=== PATIENT | male | born 1975 | race Caucasian/White ===

== ENCOUNTER → 2024-03-10 07:30 | Outpatient (CLI) | payer OTHER, SELFPAY ==
--- NOTE | 2024-03-10 07:32 | DI.US.S_ITS ---
PROCEDURE: US SCROTUM INDICATIONS: Left lower quadrant pain TECHNIQUE: Real-time scanning was performed of the scrotum and testicles, with image documentation. Color and pulse Doppler interrogation was performed of both testicles. COMPARISON: None. FINDINGS: Right: Testicle is normal in size at 5.2 x 2.4 x 3.0 cm, and homogenous in echotexture. Epididymis is normal in overall size and morphology. No hydrocele or varicoceles. Overlying scrotal skin is normal in thickness. Left: Testicle is normal in size at 4.8 x 2.5 x 3.6 cm, and homogeneous in echotexture. Epididymis is normal in overall size and morphology. Moderate hydrocele . Overlying scrotal skin is normal in thickness. Doppler: Color and pulse Doppler demonstrate normal and symmetric arterial flow in both testicles. IMPRESSION: Moderate left hydrocele, nonspecific. No evidence of torsion. Approved by: Wong Cespedes M.D. on 03/10/2024 at 16:21
--- NOTE | 2024-03-10 07:32 | DI.US.S_ITS ---
PROCEDURE: US ABDOMEN LIMITED INDICATIONS: Left lower quadrant pain TECHNIQUE: Real-time scanning was performed of the abdominal, with image documentation. COMPARISON: None. FINDINGS: In the area of clinical concern there is possible fat containing hernia in the left lower abdomen just lateral to the rectus muscle. There is defect seen with Valsalva measuring 2.6 x 1.2 x 2.1 cm. IMPRESSION: Probable fat containing hernia in the left lower quadrant lateral to the lower rectus muscle. Approved by: Deysi Dahl M.D.,Ph.D. on 03/11/2024 at 1:24
== END ==
PROVIDERS: Referring Provider Family Medicine; Visit Provider Family Medicine
DX: N43.3 Hydrocele, unspecified (principal); R10.32 Left lower quadrant pain
CPT/HCPCS: 76705; 76870

== ENCOUNTER → 2024-09-18 13:27 | Outpatient (CLI) | payer BC, SELFPAY ==
[2024-09-20 06:36] LABS: PSA Free % 19.3 % (.)
== END ==
PROVIDERS: Urology; Referring Provider Urology; Visit Provider Urology
DX: R97.20 Elevated prostate specific antigen [PSA] (principal)
CPT/HCPCS: 84153; 84154

== ENCOUNTER → 2025-03-29 14:33 | Outpatient (CLI) | payer BC, SELFPAY ==
[2025-03-31 07:10] LABS: PSA, Total 3.3 ng/mL (0.0-4.0)
== END ==
PROVIDERS: Referring Provider Urology; Visit Provider Urology
DX: N40.1 Benign prostatic hyperplasia with lower urinary tract symptoms (principal); Z12.5 Encounter for screening for malignant neoplasm of prostate
CPT/HCPCS: 36415; 84153; 84154